=== PATIENT | male | born 1950 | race Caucasian/White ===

== ENCOUNTER 2019-03-23 07:39 | Outpatient (RCR) | payer MEDICARE, OTHER, SELFPAY | END 2019-05-06 12:31 | disposition home or self-care (01) | LOC: ANHWOC 07:39 | PROVIDERS: Visit Provider Surgery | DX: L97.229 Non-pressure chronic ulcer of left calf with unspecified severity (principal) | CPT/HCPCS: 99212; 99213; A9270; G0463 ==

== ENCOUNTER 2024-11-20 10:47 | Emergency (ER) | payer MEDICARE, OTHER, SELFPAY ==
--- NOTE | ~2024-11-20 | XR_ITS ---
Clinical Indication: Shortness of breath PA and lateral views of the chest: Comparison: 08/24/2017 Findings: There is hazy, patchy bibasilar airspace disease. Probable minimal pleural effusions. Card iomediastinal silhouette is enlarged, with aortic valve replacement. Bones and soft tissues are unrem arkable. Impression: Mild bibasilar pulmonary edema with minimal pleural effusions. Cardiomegaly, status post prior aortic valve replacement. Reviewed, dictated and finalized at location . Impression: Mild bibasilar pulmonary edema with minimal pleural effusions. Cardiomegaly, status post prior aortic valve replacement.
--- NOTE | 2024-11-20 10:50 | ED_ITS ---
HPI - URI/Sore Throat General Chief Complaint: Upper Respiratory Infection Stated Complaint: congestion/sob Time Seen by Provider: 11/20/24 10:49 Patient presents to the [facility] accompanied by family with complaints of increased shortness of breath, wheezing, productive cough, and nasal congestion that began about 5 days ago. Patient does report a history of asthma does use it daily Breo inhaler over the last 5 days has been using his albuterol inhaler but 2 days ago switch using albuterol nebulizer as well with temporary relief of symptoms. Related Data Home Medications ?Medication ?Instructions ?Recorded ?Confirmed ?Last Taken ?Type atorvastatin 80 mg tablet (Lipitor) 80 mg PO QHS 06/04/23 11/30/23 Unknown History carvedilol 3.125 mg tablet (Coreg) 3.125 mg PO Q12H 06/04/23 11/30/23 Unknown History clopidogrel 75 mg tablet 75 mg PO DAILY 06/04/23 11/30/23 Unknown History sacubitril 24 mg-valsartan 26 mg 1 tablet PO BID 06/04/23 11/30/23 Unknown History tablet (Entresto) fluticasone furoate 200 1 inh inhalation DAILY 11/06/23 11/30/23 Unknown History mcg-vilanterol 25 mcg/dose inhalation powder (Breo Ellipta) pantoprazole 40 mg tablet,delayed 40 mg PO QAM 11/06/23 11/30/23 Unknown History release amitriptyline 25 mg tablet mg 11/20/24 Unknown History azithromycin 250 mg tablet mg 11/20/24 Unknown History collagenase clostridium histo. 250 topical 11/20/24 Unknown History unit/gram topical ointment (Santyl) warfarin 5 mg tablet mg 11/20/24 Unknown History Allergies Allergy/AdvReac Type Severity Reaction Status Date / Time aspirin Allergy Severe Anaphylactic Verified 11/20/24 11:08 Shock Review of Systems Constitutional: Constitutional: Reports as per HPI, Denies chills, Denies fatigue, Denies fever(s) and Denies weakness Eyes: Eyes: Reports no additional eye complaints ENT: Reports as per HPI, Denies vertigo, Denies dizziness, Reports nasal congestion and Denies sore throat Cardiovascular: Cardiovascular: Reports no additional cardiovascular complaints Respiratory: Respiratory: Reports as per HPI, Reports chest congestion, Reports cough, Reports dyspnea and Reports wheezing Gastrointestinal: Gastrointestinal: Reports no additional gastrointestinal complaints Genitourinary: Genitourinary: Reports no additional male genitourinary complaints Musculoskeletal: Musculoskeletal: Reports no additional musculoskeletal complaints Integumentary/Breasts: Skin/Breast: Reports as per HPI, Denies pruritus, Denies erythema, Denies rash and Denies skin ulcer Neurologic: Reports as per HPI, Denies headache(s), Denies focal weakness, Denies numbness and Denies weakness Psychiatric: Psychiatric: Reports no additional psychiatric complaints Endocrine: Endocrine: Reports no additional endocrine complaints Hematologic/Lymphatic: Hematologic/Lymphatic: Reports no additional hematologic/lymphatic complaints Allergic/Immunologic: Allergic/Immunologic: Reports no additional allergic/immunologic complaints PMFSH Past Medical History Medical History Aortic stenosis Asthma Cardiomyopathy Dyslipidemia GERD (gastroesophageal reflux disease) HTN (hypertension) Nasal polyps SOB (shortness of breath) Spinal stenosis Surgical History Surgical History History of aortic valve repair 07/22/22 History of rotator cuff surgery bilateral History of surgery on arm S/P lumbar fusion Social History Social History Smoking status: Former smoker Tobacco type: cigarettes Second hand tobacco smoke exposure: No Smoking end date: 04/06/06 Alcohol intake: current Alcohol use details: OCCASIONAL Substance use: never Substance use type: does not use Do You Feel Safe in your Home?: Yes Lack of Transportation: No Lack of Food: Never True Current Housing: I Have Housing Concerned About Future Housing: No Difficulty Paying Gas/Electric Bills: No Difficulty Paying for Meds: No Currently Unemployed: No Education: High School Diploma/GED Difficulty w/ Childcare or Family Care: No Living arrangements: with family Occupation/Education: occupation Gender identity (if verbalized by the patient): Male Sexual Orientation (if Verbalized by the Patient): Straight or Heterosexual Exam Const: General: healthy appearing; No no acute distress Nutritional Appearance: well nourished Orientation/consciousness: patient oriented x3 Limitations: no limitations HENMT: Head: normal to inspection Face/Nose/Sinus: Normal external nose present Face and sinus: normal facial exam and sinuses nontender Mouth: Yes Normal oral and palatal mucosa present Throat: posterior oropharynx normal Neck: Neck: normal visual inspection and no lymphadenopathy Resp: Effort & Inspection: labored, tachypneic and uses accessory muscles Auscultation: rhonchi and wheezes Other: After nebulizer treatment improved wheezing, no rhonchi noted. No crackles noted. Cardio: Rate: regular rate Rhythm: regular rhythm Skin: General skin exam: normal color Rashes: no rashes Wounds: no wounds Neuro: General: patient oriented x3 Speech: normal speech Gait exam (Neuro): Normal gait present Extrem: General: no clubbing, cyanosis or edema and no pedal edema Psych: Mental Status: mental status grossly normal Affect: normal affect Attitude: cooperative Course Course Level of Care: Express Care Visit Vital Signs Vital signs: Vital Signs Temperature 96.9 F L 11/20/24 10:59 Pulse Rate 89 11/20/24 10:59 Respiratory Rate 18 11/20/24 10:59 Blood Pressure 136/109 H 11/20/24 10:59 Pulse Oximetry 91 11/20/24 10:59 Oxygen Delivery Room Air 11/20/24 10:59 Temperature 96.9 F L 11/20/24 10:59 Pulse Rate 89 11/20/24 10:59 Respiratory Rate 18 11/20/24 10:59 Blood Pressure 136/109 H 11/20/24 10:59 Pulse Oximetry 91 11/20/24 10:59 Oxygen Delivery Room Air 11/20/24 10:59 MDM - URI/Sore Throat MDM Narrative Medical decision making narrative: Chest x-ray and nebulizer ordered while in clinic today. Improved breath sounds after nebulizer treatment. Given chest x-ray with pleural effusion and patient currently on Medrol Dosepak and azithromycin will add 5 days of furosemide due to history of CHF with pleural effusions. Discharge instructions reviewed with patient, as well as provided in writing per nursing staff. The instructions also include specific and strict return/GO TO THE ER as well as f/u information. All questions have been answered, and the patient deny any further questions with discharge and discharge plan. Differential Diagnosis Differential diagnosis: Likely upper respiratory infection, sinusitis, viral infection, bronchitis and pharyngitis Medical Records Attestation: I reviewed the patient's medical records. Imaging Data Radiologist's impression: Impression: Mild bibasilar pulmonary edema with minimal pleural effusions. Cardiomegaly, status post prior aortic valve replacement. Reviewed, dictated and finalized at location M. Discharge Plan Discharge Clinical Impression: Exacerbation of asthma, Pleural effusion Patient Disposition: Home Condition: Improved Instructions: Antibiotic Form, Pleural Effusion (DC), Shortness of Breath (ED) Additional Instructions: Start taking a Medrol Dosepak and azithromycin when you get home. Continue your Breo inhaler as directed. Continue your albuterol nebulizer every 4-6 hours for the next 2-3 days then use as needed given the pleural effusions /fluid in your lungs on chest x-ray we will add 5 days of a diuretic. This will cause frequent urination and get the fluid off. Follow-up with your primary care doctor within the next week for further evaluation. If you began to notice significant shortness of breath, increased cough, fever, chills, body aches, or any worsening symptoms go to the emergency room for further evaluation. Patient Language: Vietnamese Prescriptions: New furosemide [Lasix] 20 mg tablet 20 mg PO DAILY Qty: 5 0RF No Action azithromycin 250 mg tablet amitriptyline 25 mg tablet warfarin 5 mg tablet Santyl 250 unit/gram ointment TOPICAL albuterol sulfate 90 mcg/actuation HFA aerosol inhaler 1 - 2 inh inhalation Q4-6H PRN (Reason: shortness of breath or wheezing) Qty: 8.5 5RF Entresto 24-26 mg tablet 1 tablet PO BID carvedilol [Coreg] 3.125 mg tablet 3.125 mg PO Q12H Rx Instructions: must administer with a meal/food albuterol sulfate 2.5 mg /3 mL (0.083 %) solution for nebulization 2.5 mg inhalation Q4-6H PRN (Reason: bronchospasm) Qty: 300 1RF Rx Instructions: DX BRONCHOSPASM J98.01, ASTHMA J45.909 sildenafil [Viagra] 100 mg tablet 100 mg PO DAILY PRN (Reason: sexual activity) Qty: 14 0RF Rx Instructions: administer 30 minutes to 4 hours before activity clopidogrel 75 mg tablet 75 mg PO DAILY atorvastatin [Lipitor] 80 mg tablet 80 mg PO QHS pantoprazole 40 mg tablet,delayed release (DR/EC) 40 mg PO QAM fluticasone furoate-vilanterol [Breo Ellipta] 200-25 mcg/dose blister with device 1 inh inhalation DAILY duloxetine 60 mg capsule,delayed release(DR/EC) 60 mg PO DAILY Qty: 90 3RF methylprednisolone [Medrol (Seth)] 4 mg tablets,dose pack See Rx Instructions PO PER PKG DIR Qty: 21 0RF Rx Instructions: PO PER PKG DIR Follow-up/Referrals: Chele,Jose Eduardo Mendiola MD [Primary Care Provider] - Time of Disposition: 11:43
--- OUTSIDE RECORDS SUMMARY | 2024-11-20 10:50 | XMS_ITS | Clinical Summary ---
Author Organization [facility] Address [address] [place] [address] Care Team Providers Care Material Flow Engineer Name Role Phone Abdon Burns MD Primary Care Provider [phone] Allergies Active Allergy Reactions Criticality Noted Date Comments Aspirin Anaphylaxis High 08/21/2020 Medications acetaminophen-c odeine (TYLENOL with CODEINE #3) 300-30 mg per tablet TAKE 1-2 TABLETS BY MOUTH EVERY 6 HOURS NEEDED 06/26/[address] (CYMBALTA) 60 mg capsule Take 60 mg by mouth daily 06/26/2020 Active fluticasone propionate (FLONASE) 50 mcg/actuation nasal spray USE 2 SPRAYS IN EACH NOSTRIL TWICE DAILY 06/26/2020 Active Breo Ellipta 200-25 mcg/dose diskus inhaler INHALE 1 PUFF BY MOUTH ONCE DAILY 08/06/2020 Active lisinopriL (PRINIVIL,ZESTR [place]) 5 mg tablet Take 5 mg by mouth daily 07/11/2020 Active metoprolol tartrate (LOPRESSOR) 25 mg immediate release tablet Take 25 mg by mouth 2 (two) times a day 08/04/[address] (PROTONIX) 40 mg EC tablet Take 40 mg by mouth nightly at bedtime 06/30/2020 Active Active Problems Problem Noted Date Diagnosed Date Sensorineural hearing loss (SNHL) of both ears 0 08/21/2020 Foreign body of right ear 08/21/2020 Nasal polyps 08/21/2020 Medical History Medical History Date Comments Allergic rhinitis Asthma Hypertension Social History Tobacco Use Types Packs/Day Years Used Date Smoking Tobacco: Never Smokeless Tobacco: Never Personal Safety Answer Date Recorded Getting School Help Needed Not on file 05/31 Sex and Gender Information Value Date Recorded Sex Assigned at Not on file 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 Gender Identity Not on file Sexual Orientation Not on file Obstetrics History Last Filed Vital Signs Vital Sign Reading Time Taken Comments Blood Pressure 144/95 09/03/2017 8:05 AM CDT Pulse 63 09/03/2017 8:05 AM CDT Temperature 36.3 C (97.4 F) 08/21/2020 2:03 PM CDT Respiratory Rate - - Oxygen Saturation 95% 09/03/2017 8:05 AM CDT Inhaled Oxygen Concentration - - Weight 95.3 kg (210 lb) 08/21/2020 2:03 PM CDT Height 182.9 cm (6') 08/21/2020 2:03 PM CDT Body Mass Index 28.48 08/21/2020 2:03 PM CDT Plan of Treatment Not on file Insurance MEDICARE COMMERCIAL GENERIC MEDICARE Care Teams Material Flow Engineer Relationship Specialty Start Date End Date Abdon Burns MD [address] [place] [id number] PCP - General Internal Medicine 03/31/19
--- OUTSIDE RECORDS SUMMARY | 2024-11-20 10:50 | XMS_ITS | Encounter Summary ---
Author Organization [facility] Address [address] [place] [address] Care Team Providers Care Mangle Operator Garments Name Role Phone Abdon Burns MD Primary Care Provider [phone] Luiz Vargas MD Unavailable [phone] Ally Veronica PA-C Primary Care Provider [phone] Jose Eduardo Elaine MD Primary Care Provider [phone] Encounter Details Date Type Department Care Team (Late st Contact Info) Description 01/15/2018 Abstract [facility] CONVERSION [address] [place], [place] [id number] , Generic ConversionMD Social History Tobacco Use Types Packs/Day Years Used Date Smoking Tobacco: Never Assessed Sex and Gender Information Value Date Recorded Sex Assigned at Male 05/18/2024 2:58 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 Legal Sex Male 5:07 PM CDT Gender Identity Not on file Sexual Orientation Not on file documented as of this encounter Plan of Treatment Upcoming Encounters Date Type Department Care Team (Late st Contact Info) Description 02/13/2025 9:00 AM PASTING INSPECTOR Appointment [facility] [address] [place], [place] [phone] Marbella Jones PA [address] [place] [address] 02/17/2025 9:45 AM PASTING INSPECTOR [facility] [address] [place] [address] Marbella Jones PA [address] [facility], [address] [place] [address] documented as of this encounter Visit Diagnoses Not on filedocumented in this encounter Care Teams Mangle Operator Garments Relationship Specialty Start Date End Date Abdon Burns MD PCP - General INTERNAL MEDICINE 11/30/17 11/17/21 Ally Veronica PA-C [address] [place] [address] [address] [place] [address] PCP - General PHYSICIAN TOOL INSPECTOR 11/18/21 05/17/24 Jose Eduardo Elaine MD [address] [facility] [address] [place] [address] PCP - General FAMILY PRACTICE 05/18/24 Luiz Vargas MD Three [facility]. [address] [place] [address] [place] Information Systems Administrator INTERVENTIONAL CARDIOLOGY 01/19/18 documented as of this encounter
--- OUTSIDE RECORDS SUMMARY | 2024-11-20 10:50 | XMS_ITS | Encounter Summary ---
Author Organization [facility] Address [address] [place] [address] Care Team Providers Care Water Taxi Ferry Operator Name Role Phone Abdon Burns MD Primary Care Provider [phone] Luiz Vargas MD Unavailable [phone] Ally Veronica PA-C Primary Care Provider [phone] Jose Eduardo Elaine MD Primary Care Provider [phone] Encounter Details Date Type Department Care Team (Late st Contact Info) Description 02/03/[address] [facility] [place] [address] Luiz Vargas MD Three [facility]. 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 [address] [place] [address] Marbella Jones PA [address] [facility], [address] [place] [address] documented as of this encounter Visit Diagnoses Not on filedocumented in this encounter Care Teams Water Taxi Ferry Operator Relationship Specialty Start Date End Date Abdon Burns MD PCP - General INTERNAL MEDICINE 11/30/17 11/17/21 Ally Veronica PA-C [address] [place] [address] [address] [place] [address] PCP - General PHYSICIAN LOOM FIXER SUPERVISOR 11/18/21 05/17/24 Jose Eduardo Elaine MD [address] [facility] [address] [place] [address] PCP - General FAMILY PRACTICE 05/18/24 Luiz Vargas MD Three [facility]. [address] [address] [place] [address] [place] Rolled Glass Crosscutter INTERVENTIONAL CARDIOLOGY 01/19/18 documented as of this encounter
--- OUTSIDE RECORDS SUMMARY | 2024-11-20 10:50 | XMS_ITS | Encounter Summary ---
Author Organization [facility] Address [address] [place] [address] Care Team Providers Care News Cameraman Name Role Phone Abdon Burns MD Primary Care Provider Luiz Vargas MD Unavailable [phone] Ally Veronica PA-C Primary Care Provider [phone] Jose Eduardo Elaine MD Primary Care Provider [phone] Encounter Details Date Type Department Care Team (Late st Contact Info) Description 12/22/2017 Abstract [facility] [place] Three [facility], [place] [address] [place] [address] Elke Tolentino MA Social History Tobacco Use Types Packs/Day Years Used Date Smoking Tobacco: Never Assessed Sex and Gender Information Value Date Recorded Sex Assigned at Male 05/18/2024 2:58 PM CHILD STUDY TEAM DIRECTOR Legal Sex Male 5:07 PM CDT Gender Identity Not on file Sexual Orientation Not on file documented as of this encounter Plan of Treatment Upcoming Encounters Date Type Department Care Team (Late st Contact Info) Description 02/13/2025 9:00 AM CHILD STUDY TEAM DIRECTOR Appointment [facility] [address] [place], [place] [id number] Marbella Jones PA [address] [facility], [address] [place], [place] [id number] 02/17/2025 9:45 AM CHILD STUDY TEAM DIRECTOR Office Visit [facility] [address] [place] [phone] Marbella Jones PA 3 [facility], [address] [place] [address] documented as of this encounter Procedures Procedure Name Priority Date/Time Associated Diagnosis Comments CBC (OUTSIDE LAB) Routine 01/24/2017 COMPREHENSIVE METABOLIC PANEL Routine 01/24/2017 LIPID PANEL Routine 01/24/2017 THYROID STIM HORMONE TSH Routine 01/24/2017 documented in this encounter Results * THYROID STIM HORMONE, TSH (01/24/2017) TSH 1.88 01/24/2017 [facility] Abstract LABORATORY Final Result * LIPID PANEL (01/24/2017) CHOLESTEROL 260 HDL 74 TRIGLYCERIDES 99 LDL (CALCULATED) 166.2 01/24/2017 [facility] Abstract LABORATORY Final Result * COMPREHENSIVE METABOLIC PANEL (01/24/2017) SODIUM S/P/B 143 POTASSIUM S/P/B 4.6 CO2 28 CHLORIDE S/P/B 106 GLUCOSE 85 mg/dL CALCIUM S/P/B 9.6 BUN 17 CREATININE S/P/B 0.80 0.7 - 1.3 EGFR NON-AFR. AMER. >60 <=90 ALKALINE PHOSPHATASE S/P/B 58 ALT 18 AST 17 BILIRUBIN TOTAL S/P/B 0.6 ALBUMIN S/P/B 4.2 3.5 - 5.0 TOTAL PROTEIN S/P/B 6.8 01/24/2017 [facility] Abstract LABORATORY Final Result * CBC (OUTSIDE LAB) (01/24/2017) WBC 8.6 HGB 14.5 HCT 43.7 PLT 314 01/24/2017 [facility] Doc [facility] Abstract LAB-OUTSIDE/ABSTRACTED Final Result documented in this encounter Visit Diagnoses Not on filedocumented in this encounter Care Teams News Cameraman Relationship Specialty Start Date End Date Abdon Burns MD PCP - General INTERNAL MEDICINE 11/30/17 11/17/21 Ally Veronica PA-C [address] [place] [address] [address] [place] [address] PCP - General PHYSICIAN SEARCH ENGINE OPTIMIZATION ANALYST 11/18/21 05/17/24 Jose Eduardo Elaine MD [address] [place] [phone] PCP - General FAMILY PRACTICE 05/18/24 Luiz Vargas MD [facility]. [facility] [address] [place] [address] [place] Human Resource Statistician INTERVENTIONAL CARDIOLOGY 01/19/18 documented as of this encounter
--- OUTSIDE RECORDS SUMMARY | 2024-11-20 10:50 | XMS_ITS | Clinical Summary ---
Author Organization [facility] [place] Address [facility] [place] [address] Care Team Providers Care Cmo Name Role Phone Krystal Torres MD Unavailable Jose Eduardo Elaine MD Primary Care Provider Allergies Active Allergy Reactions Criticality Noted Date Comments Aspirin Other (see comment) 01/29/2018 Stops breathing Medications pantoprazole EC 40 MG tablet Take 1 tablet (40 mg total) by mouth nightly at bedtime. 0 08/21/2018 Active DULoxetine 60 MG capsule Take 1 capsule (60 mg total) by mouth daily. 04/11/2020 Active fluticasone furoate-vilante rol (BREO ELLIPTA) 200-25 MCG/INH inhaler Inhale 1 puff into the lungs daily. 60 each 12/05/2021 Active Vitamin D3 (VITAMIN D) 50 mcg tablet Take 1 tablet (50 mcg total) by mouth daily. Active HYDROcodone-jennifer taminophen (NORCO) 10-325 MG tablet Take 1 tablet by mouth every 6 (six) hours as needed for Pain. 12/14/2023 Active febuxostat (ULORIC) 40 MG tablet Take 1 tablet (40 mg total) by mouth daily. Active amitriptyline (ELAVIL) 25 MG tablet Take 1 tablet (25 mg total) by mouth nightly at bedtime. at bedtime 05/05/2024 Active atorvastatin (LIPITOR) 80 MG tablet Take 1 tablet (80 mg total) by mouth nightly at bedtime. 90 tablet 3 05/13/2024 Active carvedilol (COREG) 3.125 MG tablet Take 1 tablet (3.125 mg total) by mouth 2 (two) times daily. 180 tablet 3 05/13/2024 Active sacubitril-vals uvaldo (ENTRESTO) 24-26 MG tablet Take 1 tablet by mouth 2 (two) times daily. 180 tablet 3 05/13/2024 Active clopidogrel (PLAVIX) 75 MG tablet Take 1 tablet (75 mg total) by mouth daily. 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 Will complete 3 months of anticoagulation then repeat echocardiogram. PVD (peripheral vascular disease) with claudicat ion 02/12/2024 Essential (primary) hypertension 07/24/2023 Assessment & Plan (11/11/2024 3:31 PM CDT): Blood pressure is low normal in office. Asymptomatic. Continue entresto and coreg. Monitor blood pressure at home. Assessment & Plan (05/13/2024 12:13 PM LABEL PRINTER): His blood pressure in the office is elevated, but blood pressure at home is well-controlled. Continue Entresto and carvedilol. Assessment & Plan (07/24/2023 12:47 PM CDT): His blood pressure in the office is elevated, but blood pressure at home is well-controlled. Continue Entresto and carvedilol. S/P TAVR (transcatheter aortic valve replacement ) 04/17/2023 Assessment & Plan (11/11/2024 3:29 PM CDT): S/p TAVR 07/2022 with Glass Lc S3 #29 mm. Recent echocardiogram will increased velocity and gradient across the aortic valve compared to previous echo. 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 Recommend completing 3 months of warfarin therapy and then repeat echocardiogram. Assessment & Plan (05/13/2024 12:12 PM LABEL PRINTER): He is status post TAVR. Will order his yearly echo. He is 2 years post TAVR. Continue antibiotic prophylaxis prior to dental procedures. Assessment & Plan (07/24/2023 12:46 PM CDT): He is status post TAVR. Repeat yearly echoes. Severe aortic valve stenosis 07/22/2022 Assessment & Plan (08/29/2022 2:48 PM CDT): He is status post transfemoral TAVR with an Glass LC 29 mm valve. I will review his 1 month echocardiogram. Continue antibiotic prophylaxis prior to dental procedures. Continue clopidogrel. Hyperlipidemia, mixed 07/31/2021 Assessment & Plan (11/11/2024 3:34 PM CDT): Lipid panel ordered, not yet complete. Continue atorvastatin. Assessment & Plan (05/13/2024 12:12 PM LABEL PRINTER): Repeat lipid panel. Continue atorvastatin. Assessment & Plan (07/24/2023 12:46 PM CDT): He was recently started on atorvastatin. Check lipid panel. Assessment & Plan (08/29/2022 2:49 PM CDT): Lipids were significantly elevated. Continue atorvastatin. We will reassess in a few months. Assessment & Plan (07/31/2021 4:06 PM CDT): His last lipid panel from 2018 shows that his lipids were not well controlled. We will get a more up-to-date lipid panel. NICM (nonischemic cardiomyopathy) ([facility]) 11/30/2020 Assessment & Plan (11/11/2024 3:33 PM CDT): Recent echo with EF 25-30%. Continue Entresto and carvedilol. He is not having any heart failure symptoms. Assessment & Plan (05/13/2024 12:12 PM LABEL PRINTER): I think his ejection fraction is more like around 40 to 45%. Continue Entresto and carvedilol. He is not having any heart failure symptoms. Assessment & Plan (07/24/2023 12:45 PM CDT): I think his ejection fraction is more like around 40 to 45%. Continue Entresto and carvedilol. He is not having any heart failure symptoms. Assessment & Plan (08/29/2022 2:48 PM CDT): We will reassess EF on post TAVR echo. Continue lisinopril and metoprolol. Assessment & Plan (01/17/2022 3:50 PM CDT): Continue lisinopril and metoprolol. We may need to consider changing his regimen to Entresto. Assessment & Plan (11/29/2021 12:19 PM CDT): He has a nonischemic cardiomyopathy with an EF of 40 to 45% -most recent echocardiogram revealing 30 to 35% left ventricular systolic function He is not exhibiting any heart failure symptoms. Continue medical management with lisinopril and metoprolol. Not on diuretic therapy Euvolemic Assessment & Plan (07/31/2021 4:05 PM CDT): He has a nonischemic cardiomyopathy with an EF of 40 to 45%. He is not exhibiting any heart failure symptoms. Continue medical management with lisinopril and metoprolol. Assessment & Plan (11/30/2020 7:49 AM CDT): Continue with medical management - lisinopril and metoprolol euvolemic on exam Pure hypertriglyceridemia 11/30/2020 Assessment & Plan (11/30/2020 10:31 AM CDT): Would like repeat for trend. Nonrheumatic aortic valve stenosis Assessment & Plan (07/24/2023 12:46 PM CDT): He is status post TAVR. His most recent echo shows a well-functioning bioprosthetic aortic valve. Continue clopidogrel. Continue antibiotic prophylaxis prior to dental procedures. Assessment & Plan (01/17/2022 3:50 PM CDT): I recommended we repeat a limited echocardiogram to check his gradients at [facility]. I have discussed options including proceeding with aortic valve replacement versus waiting. I explained that there is a risk of sudden cardiac with waiting. Assessment & Plan (11/29/2021 12:18 PM CDT): echocardiograms from 2020, 2021 and 2018 revealing aortic stenosis in the severe range Most recent echocardiogram in November 2021 revealed low-flow low gradient Continues to deny any symptoms Aware of symptoms that could occur due to the severity of the aortic valve stenosis as well as see possible sudden cardiac They are agreeable with proceeding with TAVR work-up Assessment & Plan (07/31/2021 4:06 PM CDT): I have reviewed his echocardiograms from 2020, 2021 and 2018. His aortic stenosis appears to be in the severe range, but he is not having any symptoms. I explained to him and his that a possible presenting symptom is sudden cardiac . They would prefer to watch for the development of any symptoms and we will repeat an echocardiogram in 6 months. Assessment & Plan (11/30/2020 10:30 AM CDT): Repeat TTE May 2021 Or sooner if symptoms began = Encounters Date Type Department Care Team Description 11/17/2024 Telephone [facility] [place] [address] [place] [address] Marbella Jones PA Advise 11/16/2024 10:10 AM CDT - 11/16/2024 11:59 PM CDT Hospital Encounter [facility] [address] [place] [address] Krystal Torres MD Discharge Disposition: Home or Self Care (Routine Discharge) 11/16/2024 Anti-Coag Telephone Call [facility] [address] [address] Jackeline Guzman RN Anticoagulation (INR) 11/16/2024 Travel 11/11/2024 10:30 AM CDT Office Visit [facility] [address] [place] [address] Marbella Jones PA Follow Up (6 months); Cardiomyopathy; Hypertension; Lipids 11/04/2024 9:47 AM CDT - 11/04/2024 11:59 PM CDT Hospital Encounter [facility] [address] [place] [address] Krystal Torres MD Discharge Disposition: Home or Self Care (Routine Discharge) 11/04/2024 Anti-Coag Telephone Call [facility] [address] [address] Jcakeline Guzman RN Anticoagulation (INR) 11/04/2024 Travel 10/28/2024 10:45 AM CDT - 10/28/2024 11:59 PM CDT Hospital Encounter [facility] [address] [place] [address] Krystal Torres MD Discharge Disposition: Home or Self Care (Routine Discharge) 10/28/2024 Anti-Coag Telephone Call [facility] [address] [address] Jackeline Guzman RN Anticoagulation (INR) 10/28/2024 Orders Only [facility] [address] [place] [address] Krystal Torres MD 10/28/2024 Travel 10/21/2024 11:53 AM CDT - 10/21/2024 11:59 PM CDT Hospital Encounter [facility] [address] [place] [address] Krystal Torres MD Discharge Disposition: Home or Self Care (Routine Discharge) 10/21/2024 Anti-Coag Telephone Call [facility] [place] [address] [place] [address] Jackeline Guzman RN Anticoagulation (INR) 10/21/2024 Orders Only [facility] [address] [place] [address] Krystal Torres MD 10/21/2024 Travel 10/19/2024 Telephone [facility], [address] [address] Jackeline Guzman RN Anticoagulation 10/17/2024 10:23 AM CDT - 10/17/2024 11:59 PM CDT Hospital Encounter [facility] [address] [place] [address] Krystal Torres MD Discharge Disposition: Home or Self Care (Routine Discharge) 10/17/2024 Anti-Coag Telephone Call [facility], [address] [address] Jackeline Guzman RN Anticoagulation (INR) 10/17/2024 Travel 10/14/2024 12:41 PM CDT - 10/14/2024 11:59 PM CDT Hospital Encounter [facility] [address] [place] [address] Krystal Torres MD Discharge Disposition: Home or Self Care (Routine Discharge) 10/14/2024 Anti-Coag Telephone Call [facility], [address] [address] Angelita Bettencourt RN Anticoagulation (protime) 10/14/2024 Travel 10/14/2024 Telephone [facility] [place] [address] [place] [address] Angelita Bettencourt, RN Concerns 2024 Anti-Coag Telephone Call [facility] [place] [address] [place] [address] Angelita Bettencourt, RN Anticoagulation (Starting warfarin) 10/10/2024 Results [facility] [address] [place] [address] Daniela Landis RN USE ECHOCARDIOGRAM W CON 10/05/2024 12:43 PM CDT - 10/05/2024 11:59 PM CDT Hospital Encounter [facility] [address] [place] [address] Krystal Torres MD Discharge Disposition: Home or Self Care (Routine Discharge) 10/05/2024 Travel from Last 3 Months Family History Relation Status Comments Daughter 1 Alive Daughter 2 Alive Father (Age 83) Mother (Age 85) Sister 1 Alive Sister 2 Alive Sister 3 Alive Sister 4 Alive Son Alive Social History Tobacco Use Types Packs/Day Years Used Date Smoking Tobacco: Former Cigarettes Smokeless Tobacco: Never Tobacco Cessation:Counseling Given: Not Answered Comments:Never smoked routinely. Mostly cigars Alcohol Use Standard Drinks/Week Comments Not Currently 0 (1 standard drink = 0.6 oz pur e alcohol) B1300 Health Literacy Answer Date Recor ded How often do you need to hav e someone help you when you read instructions, pamphlets, or other written material from your doctor or pharmacy? Sometimes 02/12/2024 [facility] Utilities Answer Date Recorded In the past 12 months has e [employer], gas, oil, or water [employer] threatened to shut off services in your home? No 02/12/2024 Humiliation, Afraid, Rape, and Kick questionnair e Answer Date Recorded Within the last year, have y ou been afraid of your partner or ex-partner? No 02/12/2024 Within the last year, have y ou been humiliated or emotionally abused in other ways by your partner or ex-partner? No Within the last year, have y ou been kicked, hit, slapped, or otherwise physically hurt by your partner or ex-partner? No 02/12/2024 Within the last year, have y ou been raped or forced to have any kind of sexual activity by your partner or ex-partner? No 02/12/2024 Social Connection and Isolat ion Panel [NHANES] Answer Date Recorded In a typical week, how many times do you talk on the phone with family, friends, or neighbors? Three times a week 02/12/2024 How often do you get togethe r with friends or relatives? Three times a week 02/12/2024 How often do you attend chur or latter day services? More than 4 times per year 02/12/2024 Do you belong to any clubs o r organizations such as jehovah's witness groups, unions, fraternal or athletic groups, or school groups? No 02/12/2024 How often do you attend meet ings of the clubs or organizations you belong to? Never 02/12/2024 Are you , , di vorced, , never , or living with a partner? 02/12/2024 AUDIT-C Answer Date Recorded Q1: How often do you have a drink containing alcohol? Never 02/12/2024 Q2: How many drinks containi ng alcohol do you have on a typical day when you are drinking? Patient does not drink Q3: How often do you have si x or more drinks on one occasion? Never 02/12/2024 Overall Financial Resource Strain (CARDIA) Answe r Date Recorded How hard is it for you to pa y for the very basics like food, housing, medical care, and heating? Not hard at all 02/12/2024 [facility] - Occupational Stress Questionnaire Answer Date Recorded Do you feel stress - tense, restless, nervous, or anxious, or unable to sleep at night because your mind is troubled all the time - these days? Not at all 02/12/2024 Exercise Vital Sign Answer Date Recorde d On average, how many days pe r week do you engage in moderate to strenuous exercise (like a brisk walk)? 0 days 02/12/2024 On average, how many minutes do you engage in exercise at this level? 0 min 02/12/2024 Hunger Vital Sign Answer Date Recorded Within the past 12 months, y ou worried that your food would run out before you got the money to buy more. Never true 02/12/20 24 Within the past 12 months, t he food you bought just didn't last and you didn't have money to get more. Never true 02/12/2024 PRAPARE - Transportation Answer Date Re corded In the past 12 months, has l ack of transportation kept you from medical appointments or from getting medications? No 11/2023 In the past 12 months, has l ack of transportation kept you from meetings, work, or from getting things needed for daily living? No 02/12/2024 Housing Stability Vital Sign Answer Robbin e Recorded In the last 12 months, was t here a time when you were not able to pay the mortgage or rent on time? No 07/22/2022 In the last 12 months, how many places have you lived? 1 07/22/2022 In the last 12 months, was t here a time when you did not have a steady place to sleep or slept in a care home (including now)? No 07/22/2022 Housing Stability Vital Sign Answer Robbin e Recorded In the last 12 months, was t here a time when you were not able to pay the mortgage or rent on time? No 02/12/2024 In the past 12 months, how m any times have you moved where you were living? 0 02/12/2024 At any time in the past 12 m [facility], were you homeless or living in a care home (including now)? No 02/12/2024 Sex and Gender Information Value Date Recorded Sex Assigned at Male 05/18/2024 2:58 PM LABEL PRINTER Legal Sex Male 5:07 PM CDT Gender Identity Not on file Sexual Orientation Not on file Occupation Industry Job Start Date Job End Date Not on file Not on file Not on file Not on file Last Filed Vital Signs Vital Sign Reading Time Taken Comments Blood Pressure 96/52 11/11/2024 10:19 AM CDT Pulse 57 11/11/2024 10:19 AM CDT Temperature 36.4 C (97.6 F) 02/13/2024 11:14 AM LABEL PRINTER Respiratory Rate 18 02/13/2024 11:14 AM LABEL PRINTER Oxygen Saturation 92% 11/11/2024 10:19 AM CDT Inhaled Oxygen Concentration - - Weight 97.5 kg (215 lb) 11/11/2024 10:19 AM CDT Height 185.4 cm (6' 1) 11/11/2024 10:19 AM CDT Body Mass Index 28.37 11/11/2024 10:19 AM CDT Plan of Treatment Upcoming Encounters Date Type Department Care Team (Late st Contact Info) Description 02/13/2025 9:00 AM LABEL PRINTER Appointment [facility] [id number] [place] [address] Marbella Jones PA [address] [facility], [address] [place] [address] 02/17/2025 9:45 AM LABEL PRINTER Office Visit [facility] [address] [place] [phone] Marbella Jones PA [address] [facility], [address] [place], [place] [id number] Health Maintenance Due Date Last Done Comments Colorectal Cancer Screening Colonoscopy (10 Years) 1950 Hepatitis C 10/12/1967 DTaP, Tdap and Td Vaccines (1 - Tdap) 1968 Pneumococcal Vaccine: 50+ Years (1 of 2 - PCV) 1968 Zoster Vaccines (1 of 2) 10/12/1999 Annual Medicare Wellness Visit 2014 ASCVD LDL 06/07/2023 06/06/2022, 02/2 11/2022, 02/03/2018, Additional history exists COVID-19 Vaccine ( - season) 2023 RSV Immunization or 60+ Years (1 - 1-dose 75+ series) 2024 AAA SCREENING Completed 07/23/2022, 12/0 11/2021, 11/07/2019 Meningococcal B Vaccine Aged Out No l onger eligible based on patient's age to complete this topic Meningococcal Vaccine Aged Out No emile moses eligible based on patient's age to complete this topic RSV Immunizations Under 20 Months Aged Out No longer eligible based on patient's age to complete this topic Goals Goal Patient Goal Type Associated Problems Recent Progress Patient-Stated? Author Health - patient able to perform ADLs independently Lifestyle Ananth Miller RN Medical Devices Implanted Type Area Heading Machine Operator Device Identifier Shelf Expiration Date Model / Serial / Lot Valve Implant- [id number] Implanted:Qty: 1 on 07/22/2022 by Krystal Torres MD Valve Implant Aorta [employer] 01/15/2024 [id number] / [id number] / Procedures Procedure Name Priority Date/Time Associated Diagnosis Comments PROTHROMBIN TIME, FINGERSTICK Routine 11/16/2024 10:14 AM CDT Thrombosis of aortic valve long-term (current) use of anticoagulants PROTHROMBIN TIME, FINGERSTICK Routine 11/04/2024 9:53 AM CDT Thrombosis of aortic valve long-term (current) use of anticoagulants PROTHROMBIN TIME, VENOUS Routine 10/28/2024 10:57 AM CDT long-term (current) use of anticoagulants Thrombosis of aortic valve PROTHROMBIN TIME, VENOUS Routine 10/21/2024 12:02 PM CDT long-term (current) use of anticoagulants Thrombosis of aortic valve PROTHROMBIN TIME, FINGERSTICK Routine 10/17/2024 10:31 AM CDT Thrombosis of aortic valve long-term (current) use of anticoagulants PROTHROMBIN TIME, FINGERSTICK Routine 10/14/2024 12:48 PM CDT Thrombosis of aortic valve manager long term care (current) use of anticoagulants USE ECHOCARDIOGRAM W CON Routine 10/05/2024 1:42 PM CDT S/P TAVR (transcatheter aortic valve replacement) Nonrheumatic aortic valve stenosis CTA CHEST Today 07/23/2022 8:48 AM CDT LIPID PANEL Routine 06/06/2022 8:18 AM LABEL PRINTER Hyperlipidemia, mixed from Last 3 Months or Most Recently Relevant to Health Maintenance Results * PROTIME/INR, FINGERSTICK (11/16/2024 10:14 AM CDT) Only the most recent of4 resultswithin the time period is included. INR WHOLE BLOOD 2.7 10:15 AM CDT [facility] Comment: Recommend INR ranges for Oral Anticoagulant Therapy: Mechanical Cardiac Values 2.5-3.5 All others indication 2.0-3.0 11/16/2024 10:1 4 AM CDT Krystal Torres MD LABORATORY Final Resul t Performing Organization Address [facility] de Phone Number [facility] [address] [place] [address], [place] [phone] * (ABNORMAL) PROTIME/INR, VENOUS (10/28/2024 10:57 AM CDT) Only the most recent of2 resultswithin the time period is included. PROTIME 42.8(H) 9.1 - 12.4 SEC 10/28/2024 11:08 AM CDT [facility] INR 3.9 10/28/2024 11:08 AM CDT [facility] Comment: Recommend INR ranges for Oral Anticoagulant Therapy: Mechanical Cardiac Values 2.5-3.5 All others indication 2.0-3.0 10/28/2024 10:5 7 AM CDT us Krystal Torres MD LABORATORY Final Resul t Performing Organization Address [facility] de Phone Number [facility] [address] [place] [address], [place] [phone] * USE ECHOCARDIOGRAM W CON (10/05/2024 1:42 PM CDT) Anatomical Region Laterality Modality NA Ultrasound 10/05/2024 1:04 PM CDT Narrative 10/10/2024 8:58 AM CDT JOSE ALFREDO BUNCH Pat.Name: [place] Pat.ID: [id number] .Date: 10/05/2024 Refer.MD: Alivia, [facility] Radiology Exam Time: 1:04:00 PM Study Type:OUTREACH Height: 73 in Weight: 210 lb BSA: 2.2 m2 Age: 7 1950,73Y Sex: M Sonogrphr: Kk Pat. Stat.:Outpatient Reason for Study:, S/P TAVR Procedures: Study performed at [place], [place] and interpreted by [facility]. 2D, M-mode, Doppler, Color Flow, Myocardial contrast was used to enhance endocardial definition. ++++++++++++++++++++++++++++++++++++ SUMMARY: ++++++++++++++++++++++++++++++++++++ The left ventricular size is mild to moderately enlarged. The left ventricular systolic function is severely depressed. Estimated left ventricular ejection fraction is 25-30%. There is no left ventricular hypertrophy. Left ventricular diastolic function is not reliably assessed. There is global hypokinesis with minor regional variation. The right ventricle size is normal. The right ventricular function is normal. The left atrial size is mildly enlarged. Right atrial size is mildly enlarged. Unable to reliably quantitate pulmonary systolic pressure. A TAVR valve is in the aortic position with post-deployment peak velocity of 3.5m/sec, mean gradient of 29mmHg. Dimensionless index of 0.33. AT <100 ms. AV/BSA 0.50 c/f patient prosthesis mismatch.A trace of mynor-prosthetic aortic valve regurgitation. ++++++++++++++++++++++++++++++++++++ FINDINGS: ++++++++++++++++++++++++++++++++++++ LV: The left ventricular size is mild to moderately enlarged. The left ventricular systolic function is severely depressed. Estimated left ventricular ejection fraction is 25-30%. There is no left ventricular hypertrophy. Left ventricular diastolic function is not reliably assessed. WM: There is global hypokinesis with minor regional variation. RV: The right ventricle size is normal. The right ventricular function is normal. LA: The left atrial size is mildly enlarged. RA: Right atrial size is mildly enlarged. MYNOR: No evidence of pericardial effusion. AO: Aorta is normal. PA: Unable to reliably quantitate pulmonary systolic pressure. SVn: Inferior vena cava is normal. Inferior vena cava shows >50% collapse with respiration consistent with normal right atrial pressure. AV: Bio prosthetic aortic valve seen. A trace of mynor-prosthetic aortic valve regurgitation. No evidence of central prosthetic aortic valve regurgitation. Dimensionless index of ..33. AT <100 ms. AV/BSA 0.50 c/f patient prosthesis mismatch. A TAVR valve is in the aortic position with post-deployment peak velocity of 3.5m/sec, mean gradient of 29mmHg. MV: The mitral valve is structurally normal. There is trace mitral regurgitation. PV: No pulmonic regurgitation. Pulmonic valve not well visualized. TV: The tricuspid valve appears structurally normal. There is trace tricuspid regurgitation. <Electronic Signature> 10/10/2024 08:58 AM Edouard John M.D. Procedure Note Edouard John MD - 10/10/2024 [facility] ALIVIA Pat.Name: Bridger Meadows Pat.ID: [id number] .Date: 10/05/2024 Refer.MD: Alivia, [facility] Radiology Exam Time: 1:04:00 PM Study Type:ALIVIA Height: 73 in Weight: 210 lb BSA: 2.2 m2 Age: 7 1950,73Y Sex: M Sonogrphr: [place] Pat. Stat.:Outpatient Reason for Study:, S/P TAVR Procedures: Study performed at [place], [place] and interpreted by [facility]. 2D, M-mode, Doppler, Color Flow, Myocardial contrast was used to enhance endocardial definition. ++++++++++++++++++++++++++++++++++++ SUMMARY: ++++++++++++++++++++++++++++++++++++ The left ventricular size is mild to moderately enlarged. The left ventricular systolic function is severely depressed. Estimated left ventricular ejection fraction is 25-30%. There is no left ventricular hypertrophy. Left ventricular diastolic function is not reliably assessed. There is global hypokinesis with minor regional variation. The right ventricle size is normal. The right ventricular function is normal. The left atrial size is mildly enlarged. Right atrial size is mildly enlarged. Unable to reliably quantitate pulmonary systolic pressure. A TAVR valve is in the aortic position with post-deployment peak velocity of 3.5m/sec, mean gradient of 29mmHg. Dimensionless index of 0.33. AT <100 ms. AV/BSA 0.50 c/f patient prosthesis mismatch.A trace of mynor-prosthetic aortic valve regurgitation. ++++++++++++++++++++++++++++++++++++ FINDINGS: ++++++++++++++++++++++++++++++++++++ LV: The left ventricular size is mild to moderately enlarged. The left ventricular systolic function is severely depressed. Estimated left ventricular ejection fraction is 25-30%. There is no left ventricular hypertrophy. Left ventricular diastolic function is not reliably assessed. WM: There is global hypokinesis with minor regional variation. RV: The right ventricle size is normal. The right ventricular function is normal. LA: The left atrial size is mildly enlarged. RA: Right atrial size is mildly enlarged. MYNOR: No evidence of pericardial effusion. AO: Aorta is normal. PA: Unable to reliably quantitate pulmonary systolic pressure. SVn: Inferior vena cava is normal. Inferior vena cava shows >50% collapse with respiration consistent with normal right atrial pressure. AV: Bio prosthetic aortic valve seen. A trace of mynor-prosthetic aortic valve regurgitation. No evidence of central prosthetic aortic valve regurgitation. Dimensionless index of ..33. AT <100 ms. AV/BSA 0.50 c/f patient prosthesis mismatch. A TAVR valve is in the aortic position with post-deployment peak velocity of 3.5m/sec, mean gradient of 29mmHg. MV: The mitral valve is structurally normal. There is trace mitral regurgitation. PV: No pulmonic regurgitation. Pulmonic valve not well visualized. TV: The tricuspid valve appears structurally normal. There is trace tricuspid regurgitation. <Electronic Signature> 10/10/2024 08:58 AM Edouard John M.D. us Krystal Torres MD ECHO Final Resul t * CTA CHEST (07/23/2022 8:48 AM CDT) Anatomical Region Laterality Modality Chest Computed Tomogra phy 07/23/2022 9:21 AM CDT Impressions 07/23/2022 9:49 AM CDT =====IMPRESSION:===== 1. No aortic dissection or acute vascular injury. 2. Atherosclerotic and mildly aneurysmal thoracic aorta with largest diameter 4.1 cm in the mid ascending aorta. No change from the prior exam by my measurements. 3. 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 The left vertebral artery is dominant. Small right vertebral artery enhances normally. 4. At least moderate stenosis of the left subclavian artery. 5. Mild coronary artery calcifications. 6. Post TAVR. 7. Few tiny pulmonary nodules. Follow-up chest CT is recommended in 12 months. Ordered By: KRYSTAL TORRES Interpreted By: Randy Mcintosh MD, 07/23/2022 9:21 AM Narrative 07/23/2022 9:49 AM CDT EXAMINATION: CTA CHEST WITH CONTRAST EXAM DATE/TIME: 07/23/2022 8:38 AM REASON FOR EXAM: mediastinal widening on x-ray after TAVR Aortic dissection, post repair, follow up COMPARISON: 03/13/2022 TECHNIQUE: Computed tomography angiography was performed of the chest after administration of intravenous contrast, 80 mL Isovue-370 , according to routine protocol. Additional 3-D reconstructions and postprocessing were performed at a separate workstation. Automated exposure control was utilized for dose reduction. FINDINGS: Mediastinal windows: Prior aortic valve replacement noted. No aortic dissection or acute hemorrhage. Tail of the left ventricle noted, similar to the prior exam. Cardiac size overall is within normal limits. No pericardial effusion. Mild coronary artery calcifications. Pulmonary arteries are unremarkable. Mild aneurysmal dilatation of the thoracic aorta with largest diameter 4.1 cm at the level of the mid ascending aorta. The sinotubular junction measures 3.2 x 3.1 cm. Proximal ascending aorta measures 3.7 x 3.5 cm. Mid ascending aorta measures 4.1 x 4.0 cm. Proximal arch measures 3.9 x 3.9 cm. Distal arch measures 3.5 x 3.5 cm. The remainder of the descending aorta measures 3 cm while less. Scattered atherosclerotic plaque. Eccentric plaque and moderate stenosis of the left subclavian artery. Moderate to severe stenosis of the left vertebral artery origin. Milder atherosclerotic plaque on the right. The left vertebral artery is dominant with the right vertebral artery is markedly hypoplastic. Tiny thyroid nodules, better shown on the prior exam. Esophagus is unremarkable. No mediastinal or hilar lymphadenopathy. Diverticulosis of the visualized colon. Bilateral renal atrophy with renal cortical thinning. 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 Tiny renal cysts. Severe atrophy of the right latissimus dorsi. Milder muscle atrophy elsewhere. Mildly prominent fat in the upper mediastinum could be very mild lipomatosis or related to patient body habitus. Lung windows: Mild patchy bilateral atelectasis. Minimal hazy opacities appear chronic. Bilateral peribronchial thickening, likely chronic bronchitis. Tiny noncalcified nodule in the left lower lobe superior segment is new, measuring 4 mm (image 66 of 146). Stable tiny nodules along the right pulmonary fissure, probably benign. No pleural effusion or pneumothorax. Diffuse degenerative changes are noted. Chronic endplate deformities. Chronic healed rib fractures and chronic sternal fracture. No acute fracture or destructive bone lesion. Procedure Note Randy Mcintosh MD - 07/23/2022 EXAMINATION: CTA CHEST WITH CONTRAST EXAM DATE/TIME: 07/23/2022 8:38 AM REASON FOR EXAM: mediastinal widening on x-ray after TAVR Aortic dissection, post repair, follow up COMPARISON: 03/13/2022 TECHNIQUE: Computed tomography angiography was performed of the chestafter administration of intravenous contrast, 80 mL Isovue-370 , accordingto routine protocol. Additional 3-D reconstructions and postprocessingwere performed at a separate workstation. Automated exposure control wasutilized for dose reduction. FINDINGS: Mediastinal windows: Prior aortic valve replacement noted. No aorticdissection or acute hemorrhage. Tail of the left ventricle noted, similarto the prior exam. Cardiac size overall is within normal limits. Nopericardial effusion. Mild coronary artery calcifications. Pulmonaryarteries are unremarkable. Mild aneurysmal dilatation of the thoracicaorta with largest diameter 4.1 cm at the level of the mid ascendingaorta. The sinotubular junction measures 3.2 x 3.1 cm. Proximal ascendingaorta measures 3.7 x 3.5 cm. Mid ascending aorta measures 4.1 x 4.0 cm.Proximal arch measures 3.9 x 3.9 cm. Distal arch measures 3.5 x 3.5 cm.The remainder of the descending aorta measures 3 cm while less. Scatteredatherosclerotic plaque. Eccentric plaque and moderate stenosis of the leftsubclavian artery. Moderate to severe stenosis of the left vertebralartery origin. Milder atherosclerotic plaque on the right. The leftvertebral artery is dominant with the right vertebral artery is markedlyhypoplastic. Tiny thyroid nodules, better shown on the prior exam.Esophagus is unremarkable. No mediastinal or hilar lymphadenopathy.Diverticulosis of the visualized colon. Bilateral renal atrophy with renalcortical thinning. Likely small chronic renal cortical infarctsbilaterally. Tiny renal cysts. Severe atrophy of the right latissimusdorsi. Milder muscle atrophy elsewhere. Mildly prominent fat in the uppermediastinum could be very mild lipomatosis or related to patient bodyhabitus. Lung windows: Mild patchy bilateral atelectasis. Minimal hazy opacitiesappear chronic. Bilateral peribronchial thickening, likely chronicbronchitis. Tiny noncalcified nodule in the left lower lobe superiorsegment is new, measuring 4 mm (image 66 of 146). Stable tiny nodulesalong the right pulmonary fissure, probably benign. No pleural effusion orpneumothorax. Diffuse degenerative changes are noted. Chronic endplate deformities.Chronic healed rib fractures and chronic sternal fracture. No acutefracture or destructive bone lesion. =====IMPRESSION:===== 1. No aortic dissection or acute vascular injury. 2. Atherosclerotic and mildly aneurysmal thoracic aorta with largestdiameter 4.1 cm in the mid ascending aorta. No change from the prior examby my measurements. 3. Significant plaque and severe stenosis of the left vertebral arteryorigin. The left vertebral artery is dominant. Small right vertebralartery enhances normally. 4. At least moderate stenosis of the left subclavian artery. 5. Mild coronary artery calcifications. 6. Post TAVR. 7. Few tiny pulmonary nodules. Follow-up chest CT is recommended in 12months. Ordered By: KRYSTAL TORRES Interpreted By: Randy Mcintosh MD, 07/23/2022 9:21 AM us Krystal Torres MD CT Final Resul t * (ABNORMAL) LIPID PANEL (06/06/2022 8:18 AM LABEL PRINTER) CHOLESTEROL 332(H) <200.0 MG/DL 06/06/2022 8:[address] [facility] TRIGLYCERIDES 114 <150 MG/DL 06/06/2022 8:[address] [facility] HDL 67 >40.0 MG/DL 06/06/2022 8:[address] [facility] LDL (CALCULATED) 242(H) <100 MG/DL 06/06/2022 8:[address] [facility] NON HDL CHOLESTEROL 265(H) <130 MG/DL 06/06/2022 8:[address] [facility] CHOL/HDL RATIO 5.0(H) 0.0 - 4.5 06/06/2022 8:[address] [facility] VLDL CALCULATION 23 5 - 55 MG/DL 06/06/2022 8:[address] [facility] LIPID INTERPRETATION 06/06/2022 8:[address] [facility] Comment: [facility] CONCENSUS REPORT RECOMMENDATIONS: ADULT CHILD LOW RISK: CHOLESTEROL <200 <170 TRIGLYCERIDE <150 --- HDL >=60 --- LDL <100 <110 BORDERLINE: CHOLESTEROL 200-239 170-199 TRIGLYCERIDE 150-199 --- HDL 40-59 --- LDL 100-159 110-129 HIGH RISK: CHOLESTEROL >=240 >=200 TRIGLYCERIDE >=200 --- HDL <40 --- LDL >=160 >=130 06/06/2022 8:18 AM LABEL PRINTER us Sofia Melendrez PA-C LABORATORY Final Resul t [facility] [address] [place] [address], from Last 3 Months or Most Recently Relevant to Health Maintenance Insurance MEDICARE MEDICARE LOCAL [facility] Advance Directives * Full Code (Latest Code Status on File) Date Activated Date Inactivated Comments 02/12/2024 3:43 PM 02/13/2024 3:33 PM * Full Code Date Activated Date Inactivated Comments 07/22/2022 10:31 AM 07/23/2022 1:59 PM * Full Code Date Activated Date Inactivated Comments 07/22/2022 6:41 AM 07/22/2022 10:31 AM * Full Code Date Activated Date Inactivated Comments 06/03/2022 3:20 PM 06/03/2022 8:47 PM * Full Code Date Activated Date Inactivated Comments 02/03/2018 2:50 PM 02/04/2018 8:47 AM Care Teams Cmo Relationship Specialty Start Date End Date Jose Eduardo Elaine MD [address] [place] [address] [address] [place] [address] PCP - General FAMILY PRACTICE 05/18/24 Krystal Torres MD [facility]. [facility] [address] [place] [address] [employer] INTERVENTIONAL CARDIOLOGY 01/19/18
--- OUTSIDE RECORDS SUMMARY | 2024-11-20 10:50 | XMS_ITS | Encounter Summary ---
Author Organization [facility] Address [address] [place] [address] Care Team Providers Care It Application Support Analyst Name Role Phone Luiz Vargas MD Unavailable [phone] Jose Eduardo Elaine MD Primary Care Provider [phone] Reason for Visit * Reason Onset Date Comments Results 10/10/2024 Encounter Details Date Type Department Care Team (Latest Contact Info) Description 10/10/2024 [facility] [id number] [place] [phone] Daniela Landis RN USE ECHOCARDIOGRAM W CON Social History Tobacco Use Types Packs/Day Years Used Date Smoking Tobacco: Former Cigarettes Smokeless Tobacco: Never Comments:Never smoked routin titus. Mostly cigars Alcohol Use Standard Drinks/Week Comments Not Currently 0 (1 standard drink = 0.6 oz pur e alcohol) B1300 Health Literacy Answer Date Recor ded How often do you need to hav e someone help you when you read instructions, pamphlets, or other written material from your doctor or pharmacy? Sometimes 02/12/2024 [facility] Utilities Answer Date Recorded In the past 12 months has e electric, gas, oil, or water company threatened to shut off services in your [...] How often do you attend chur or scientologist services? More than 4 times per year 02/12/2024 Do you belong to any clubs o r organizations such as rastafarian groups, unions, fraternal or athletic groups, or [...] and heating? Not hard at all 02/12/2024 [facility] [place] of Occupat ional Health - Occupational Stress [...] place to sleep or slept in a snf (including now)? No 07/22/2022 Housing Stability Vital Sign Answer Robbin e Recorded In the last 12 months, was t here a time when you were not able to pay the mortgage or rent on time? No 02/12/2024 In the past 12 months, how m any times have you moved where you were living? 0 02/12/2024 At any time in the past 12 m [facility], were you homeless or living in a snf (including now)? No 02/12/2024 Sex and Gender Information Value Date Recorded Sex Assigned at Male 05/18/2024 2:58 PM EQUITY STRUCTURER Legal Sex Male 5:07 PM CDT Gender Identity Not on file Sexual Orientation Not on file Occupation Industry Job Start Date Job End Date Not on file Not on file Not on file Not on file documented as of this encounter Functional Status * Are you deaf or do you have serious difficulty hearing Answer Date of Assessment Author Status Yes 02/12/2024 3:25 PM EQUITY STRUCTURER Juan J Russell RN Active * Are you blind or do you have serious difficulty seeing, even when wearing glasses? Answer Date of Assessment Author Status No 02/12/2024 3:25 PM Juan J Mancilla RN Active * Do you have serious difficulty walking or climbing stairs? Answer Date of Assessment Author Status No 02/12/2024 3:25 PM Juan J Mancilla RN Active * Do you have difficulty dressing or bathing? Answer Date of Assessment Author Status No 02/12/2024 3:25 PM Juan J Mancilla RN Active * Because of a physical, mental, or emotional condition, do you have difficulty doing errands alone such as visiting a doctor's office or shopping? Answer Date of Assessment Author Status No 02/12/2024 3:25 PM Juan J Mancilla RN Active documented as of this encounter Mental Status * Because of a physical, mental, or emotional condition, do you have serious difficulty concentrating, remembering, or making decisions? Answer Entry Date Author Status No 02/12/2024 3:25 PM Juan J Mancilla RN Active documented in this encounter Progress Notes * Daniela Landis RN - 2024 10:28 AM CDT Patient and loly/KELSY informed of the result and recommendations. They both v/u of the need to start coumadin. Sending message to coumadin clinic to initiate coumadin therapy. states to please call her in order to go over education/start of care. documented in this encounter Plan of Treatment Upcoming Encounters Date Type Department Care Team (Late st Contact Info) Description 02/13/2025 9:00 AM EQUITY STRUCTURER Appointment [facility] [address] [place] [address] Marbella Jones PA [address] [place] [address] 02/17/2025 9:45 AM EQUITY STRUCTURER Office Visit [facility] [address] [place] [phone] Marbella Jones PA [address] [facility], [address] [place], [place] [id number] documented as of this encounter Goals Goal Patient Goal Type Associated Problems Recent Progress Patient-Stated? Author Health - patient able to perform ADLs independently Lifestyle No Ananth Arteaga, RN documented as of this encounter Visit Diagnoses Not on filedocumented in this encounter Care Teams It Application Support Analyst Relationship Specialty Start Date End Date Jose Eduardo Elaine MD [address] [facility] [address] [place] [address] PCP - General FAMILY PRACTICE 05/18/24 Luiz Vargas MD [facility]. [facility] [address] [place], [place] [id number] [employer] INTERVENTIONAL CARDIOLOGY 01/19/18 documented as of this encounter
--- OUTSIDE RECORDS SUMMARY | 2024-11-20 10:50 | XMS_ITS | Encounter Summary ---
Author Organization [facility] Care Team Providers Care Filter Tank Tender Name Role Phone Abdon Burns MD Primary Care Provider [phone] Encounter Details Date Type Department Care Team (Latest Contact Info) Description 09/03/2017 Orders Only [facility] CLINCONV ProviderGuanakito MD [address] [place] [id number] Social History Tobacco Use Types Packs/Day Years Used Date Smoking Tobacco: Never Assessed Sex and Gender Information Value Date Recorded Sex Assigned at Not on file Legal Sex Male 2:57 PM FIELDWORK COORDINATOR Gender Identity Not on file Sexual Orientation Not on file documented as of this encounter Plan of Treatment Not on file documented as of this encounter Procedures Procedure Name Priority Date/Time Associated Diagnosis Comments PROCEDURE - RESULT 08/28/2017 12 :00 AM CDT documented in this encounter Results * PROCEDURE - RESULT (08/28/2017 12:00 AM CDT) Narrative 08/28/2017 12:00 AM CDT Ordered by an unspecified provider. Historical Provider Final Res ult documented in this encounter Visit Diagnoses Not on filedocumented in this encounter Care Teams Filter Tank Tender Relationship Specialty Start Date End Date Abdon Burns MD [address] [place] [id number] PCP - General Internal Medicine 03/31/19 documented as of this encounter
[2024-11-20 10:59] VITALS: BP 136/109; PULSE 89; RESP 22; TEMP 36.1; O2SAT 91
[2024-11-20] MEDS: IPRATROPIUM 0.5 MG/ALBUTEROL SULFATE 2.5 MG AMPUL.NEB 3 ML INHALATION (11:19)
[2024-11-20 11:30] VITALS: BP 98/63; PULSE 82; RESP 24; O2SAT 92
== END 2024-11-20 11:46 | disposition home or self-care (01) ==
PROVIDERS: Emergency Provider Nurse Practitioner Family; PCP Family Medicine
DX: J45.901 Unspecified asthma with (acute) exacerbation (principal); J90 Pleural effusion, not elsewhere classified; I11.0 Hypertensive heart disease with heart failure; I50.9 Heart failure, unspecified; I35.0 Nonrheumatic aortic (valve) stenosis; I42.9 Cardiomyopathy, unspecified; E78.5 Hyperlipidemia, unspecified; K21.9 Gastro-esophageal reflux disease without esophagitis; M48.00 Spinal stenosis, site unspecified; Z87.891 Personal history of nicotine dependence; Z79.01 Long term (current) use of anticoagulants
CPT/HCPCS: 71046; 94640; 99213; G0463